=== PATIENT | female | born 1950 | race Caucasian/White ===

== ENCOUNTER → 2020-07-21 | Outpatient (CLI) | payer BC ==
[~2020-07-21] MED LIST: ADVIL200 M1 PO; CYMBALTA 30 MG30 MG PO; ELIQUIS2.5 MG PO; LIPITOR TAB 2020 MG PO; METAMUCIL0.52 GM PO; PERCOCET 10-321 EACH PO; SPIRONOLACTONE50 MG PO; SYNTHROID88 MCG PO; TYLENOL EXTRA500 MG PO
== END ==
LOC: KOH-I 16:24
DX: M79.674 Pain in right toe(s) (principal); S92.511A Displaced fracture of proximal phalanx of right lesser toe(s), initial encounter for closed fracture
CPT/HCPCS: 73620